=== PATIENT | female | born 1990 | race Caucasian/White ===

== ENCOUNTER 2021-06-16 10:16 | Emergency (ER) | payer OTHER, SELFPAY ==
--- NOTE | ~2021-06-16 | XR_ITS ---
EXAMINATION: XR ankle LT min 3V DATE: 06/16/2021 11:08 INDICATION: Left ankle pain. TECHNIQUE: 4 views of left ankle were obtained. COMPARISON: None. FINDINGS: Bone alignment is normal. No fracture. Joint spaces are well maintained. There are enthesop hytes at the posterior and plantar aspects of calcaneal tuberosity. There is ankle soft tissue swelli ng. IMPRESSION: 1. No fracture. Reviewed, dictated and finalized at location A. OGRAPHIC SURVEYOR IMPRESSION: 1. No fracture.
--- NOTE | ~2021-06-16 | XR_ITS ---
EXAMINATION: XR foot LT min 3V DATE: 06/16/2021 11:08 INDICATION: Left foot pain. Fall. TECHNIQUE: 4 views of left foot were obtained. COMPARISON: None. FINDINGS: Bone alignment is normal. No fracture. Joint spaces are well maintained. There are enthesop hytes at the posterior and plantar aspects of calcaneal tuberosity. IMPRESSION: 1. No fracture. Reviewed, dictated and finalized at location A. Y MACHINE OPERATOR IMPRESSION: 1. No fracture.
[2021-06-16 10:53] VITALS: BP 127/77; PULSE 90; RESP 18; TEMP 36.9; O2SAT 100
--- NOTE | 2021-06-16 11:54 | ED.LOWEXIN ---
HPI - Extremity Injury (Lower) General Chief Complaint: Extremity Injury, Lower Stated Complaint: lt ankle injury Time Seen by Provider: 06/16/21 11:48 Source: patient, RN notes reviewed and old records reviewed Mode of arrival: ambulatory Limitations: no limitations History of Present Illness HPI Narrative: 31 year old female ho presents to express care with complaints of falling off of porch yesterday approximately one step height. Patient states that she felt ankle roll both ways and felt a pop. Patient reports that she did not hit her head or have any other injury related to fall. Patient reports that she has continued pain to the dorsal proximal foot and to bilateral ankle with some swelling noted to foot. Patient has been applying ice and taking Ibuprofen for her discomfort. MD complaint: ankle injury and foot injury Onset (ago): day(s) (1) Injury: Left: ankle and foot Type of Injury: other (rolled ankle both ways) Place: home Severity: moderate Severity scale (1-10): 6 (with weight bearing, 3 with movement, none at rest) Relieving factors: NSAID and cold therapy Exacerbating factors: weight bearing Context: fall Associated symptoms: snap/pop sensation, swelling and able to partially bear weight Treatments prior to arrival: cold therapy and NSAIDS Related Data Home Medications Medication Instructions Recorded Confirmed No Home Medications 06/16/21 06/16/21 Allergies Allergy/AdvReac Type Severity Reaction Status Date / Time latex Allergy Unknown Verified 06/16/21 11:00 Review of Systems Review of Systems: CONSTITUTIONAL: Denies fever, chills, or sweats. EYES: Denies visual changes, redness, or discharge. ENT: Denies rhinorrhea, congestion, sore throat, or otalgia. CARDIOVASCULAR: Denies chest pain, palpitations, or edema. RESPIRATORY: Denies cough or dyspnea. GASTROINTESTINAL: Denies abdominal pain, nausea, vomiting, or diarrhea. GENITOURINARY: Denies dysuria or hematuria. SKIN: Denies rash or itching. MUSCULOSKELETAL: Denies back pain, positive for left foot and ankle joint pain, or myalgia. NEUROLOGIC: Denies headache, numbness, or weakness. PSYCHIATRIC: Denies anxiety or depression. All systems reviewed & are unremarkable except as noted in HPI and below PMFSH Past Medical History Medical History (Updated 06/16/21 @ 12:25 by Tammi Gonzalez NP) Obesity Plantar wart of both feet Laser surgery for removal Family History Family History (Updated 06/16/21 @ 12:25 by Tammi Gonzalez NP) Grandparent Ovarian cancer Mother Bipolar disease, chronic Father Cerebrovascular accident Hypertension Social History Social History (Updated 06/16/21 @ 12:24 by Tammi Gonzalez NP) Smoking packs per day: 0.25 Smoking cigarettes per day: 5.0 Smoking status: Current every day smoker Tobacco type: cigarettes Alcohol intake: never Substance use: never Living arrangements: with family Gender identity (if verbalized by the patient): Female Comments At time of signature, agree with nursing past medical, surgical, social and family history. There is no relevant family history pertinent to the presenting complaint Exam Narrative: GENERAL: Well-appearing, well-nourished, and in no acute distress. HEAD: Normocephalic, atraumatic. EYES: PERRLA and EOMI. ENT: Nares clear, no rhinorrhea or epistaxis. Mucous membranes moist. NECK: Supple. no lymphadenopathy CHEST: Clear to auscultation. No respiratory distress.SAO2 100% on room air HEART: Regular rate and rhythm. No murmur heard. Normal peripheral pulses. ABDOMEN: Soft, nontender, nondistended, normal active bowel sounds. EXTREMITIES: Normal range of motion. Positive for edema and tenderness to the proximal dorsal foot and bilateral ankle area with increase pain with movement and weight bearing, Circulation and sensation is intact. no obvious deformity noted. SKIN: Warm, dry, no rash. NEURO: No focal deficits. Alert and oriented x3. Course Cou
== END 2021-06-16 12:04 | disposition home or self-care (01) ==
PROVIDERS: Emergency Provider Registered Nurse
DX: S93.602A Unspecified sprain of left foot, initial encounter (principal); S93.402A Sprain of unspecified ligament of left ankle, initial encounter; X50.9XXA Other and unspecified overexertion or strenuous movements or postures, initial encounter; E66.9 Obesity, unspecified; Z68.38 Body mass index [BMI] 38.0-38.9, adult; F17.210 Nicotine dependence, cigarettes, uncomplicated
CPT/HCPCS: 73610; 73630; 99213; G0463